=== PATIENT | female | born 1980 | race Caucasian/White ===

== ENCOUNTER 2020-04-29 19:57 | Emergency (ER) | payer OTHER ==
[~2020-04-29] VITALS: Ht 149.9 cm; Wt 84.1 kg
[2020-04-29] MEDS ORDERED: AMOXICILLIN 8751 TAB PO (20:48)
[2020-04-29 21:28] VITALS: BP 121/64; PULSE 76; TEMP 98.7
== END 2020-04-29 21:37 | disposition home or self-care (01) ==
LOC: COL.ER 19:57 → EDBD 19:58 → COL.ER 21:37
DX: S61.250A Open bite of right index finger without damage to nail, initial encounter (principal); Z88.5 Allergy status to narcotic agent; Z88.8 Allergy status to other drugs, medicaments and biological substances; W54.0XXA Bitten by dog, initial encounter

== ENCOUNTER 2020-09-28 21:05 | Emergency (ER) | payer OTHER ==
[~2020-09-28] VITALS: Ht 149.9 cm; Wt 85.5 kg
[~2020-09-28 21:05] MED LIST: AMOXICILLIN 8751 TAB PO
[2020-09-28 22:22] VITALS: BP 118/64; PULSE 86; TEMP 97.3
== END 2020-09-28 22:26 | disposition home or self-care (01) ==
LOC: COL.ER 21:05
DX: M72.2 Plantar fascial fibromatosis (principal)

== ENCOUNTER 2023-01-16 20:42 | Emergency (ER) | payer OTHER ==
[~2023-01-16] VITALS: Ht 149.9 cm; Wt 84.1 kg
[2023-01-16] MEDS ORDERED: EPIPEN 2-PAK1 MG/ML IM (23:55)
[2023-01-17 00:04] VITALS: BP 119/82; PULSE 76
== END 2023-01-17 00:04 | disposition home or self-care (01) ==
LOC: COL.ER 20:42
DX: L50.9 Urticaria, unspecified (principal); T40.725A Adverse effect of synthetic cannabinoids, initial encounter; Z28.311 Partially vaccinated for COVID-19

== ENCOUNTER 2023-10-04 12:37 | Emergency (ER) | payer OTHER ==
[~2023-10-04] VITALS: Ht 149.9 cm; Wt 83.2 kg
[~2023-10-04 12:37] MED LIST changes: +EPIPEN 2-PAK1 MG/ML IM
[2023-10-04] MEDS ORDERED: Ibuprofen 600 MG TAB PO ONE (14:45)
[2023-10-04 15:53] VITALS: BP 103/64
[2023-10-04 16:04] LABS: STREP A NEGATIVE
[2023-10-04 17:30] VITALS: PULSE 95; TEMP 99.7
== END 2023-10-04 17:30 | disposition home or self-care (01) ==
LOC: COL.ER 12:37
PROVIDERS: Nurse Practitioner
DX: J02.9 Acute pharyngitis, unspecified (principal)